=== PATIENT | male | born 1975 | race Hispanic/Latino ===

== ENCOUNTER 2021-04-07 07:37 | Day surgery (SDC) | payer OTHER ==
[2021-04-06 14:24] VITALS: BP 134/88
[2021-04-07] VITALS (18 sets, daily range): BP systolic 109–136; BP diastolic 67–97
[~2021-04-07] VITALS: Ht 167.6 cm; Wt 111.3 kg
[~2021-04-07 07:37] MED LIST: CEFTRIAXONE 1G VIAL IVP SCH; LACTATED RINGERS 1000ML 1,000 ML IV ONE; MITOMYCIN 40 MG SYR.W..INJ SCH
[2021-04-07] MEDS ORDERED: NEOSTIGMINE 5MG/5ML SYR IV ONE (09:49)
[2021-04-07] MEDS ORDERED: PROPOFOL 10 MG/ML 20ML VIAL IV ONE ×2 (09:49→10:35)
[2021-04-07] MEDS ORDERED: GLYCOPYRROLATE 1 MG/5 ML SYRINGE ONE (09:49)
[2021-04-07] MEDS ORDERED: ONDANSETRON 4MG INJ ONE (09:49)
[2021-04-07] MEDS ORDERED: LIDOCAINE PF 100MG/5ML (2%) SYRINGE 5ML ONE (09:49)
[2021-04-07] MEDS ORDERED: MIDAZOLAM HCL 1 MG/ML 2ML VIAL ONE (09:49)
[2021-04-07] MEDS ORDERED: SUCCINYLCHOLINE 200MG/10ML SYR ONE (09:49)
[2021-04-07] MEDS ORDERED: DEXAMETHASONE SOD PHOSPHATE 10MG/ML 1ML VIAL ONE (09:49)
[2021-04-07] MEDS ORDERED: ROCURONIUM 10MG/1ML SYR 10 MG/ML ML ONE (09:50)
[2021-04-07] MEDS ORDERED: FENTANYL CITRATE PF 50 MCG/1 ML 2ML VIAL ONE ×2 (09:50→10:36)
[2021-04-07] MEDS ORDERED: MITOMYCIN 40 MG SYR.W..INJ IV SCH (10:30)
[2021-04-07] MEDS ORDERED: PHENAZOPYRIDINE HCL 200 MG TABLET ONE (12:18)
== END 2021-04-07 13:15 | disposition home or self-care (01) ==
LOC: CANPRESDC → DAH 07:37
PROVIDERS: ATTEND Urology
DX: D49.4 Neoplasm of unspecified behavior of bladder (principal); Z20.822 Contact with and (suspected) exposure to COVID-19; N35.919 Unspecified urethral stricture, male, unspecified site; N40.0 Benign prostatic hyperplasia without lower urinary tract symptoms; R31.29 Other microscopic hematuria; E66.9 Obesity, unspecified; Z79.899 Other long term (current) drug therapy
CPT/HCPCS: 51720; 52234; 87635; A4215; A4221; A4222; A4223; A4354; A4358; A4600; A4663; C9803; J0330; J0696; J1100; J2001; J2250; J2405; J2704 ×2; J2710; J3010 ×2; J3490; J7030; J7120; J9280